=== PATIENT | female | born 1970 | race Caucasian/White ===

== ENCOUNTER → 2019-10-14 | Outpatient (CLI) | payer OTHER ==
--- NOTE | 2019-10-14 09:25 | PCVCIMAG ---
APPROVED REPORT Study performed: 10/14/2019 08:43:45 EXAM: Comprehensive 2D, Doppler, and color-flow Echocardiogram Patient Location: Echo lab Status: routine BSA: 2.06 HR: 58 bpmBP: 130/100 mmHg Rhythm: NSR Other Information Study Quality: Good Risk Factors: Cardiac Risk Factors: HTN Indications Rheumatoid arthritis 2D Dimensions IVSd: 10.96 (7-11mm)LVOT Diam: 18.18 (18-24mm) LVDd: 39.78 mm PWd: 8.41 (7-11mm)Ascending Ao: 32.05 (22-36mm) LVDs: 30.03 (25-40mm) Left Atrium: 44.37 (27-40mm) Aortic Root: 27.17 mm LV Single Plane 4CH: 54.86 % LV Single Plane 2CH: 61.59 % Biplane EF: 59.6 % Volumes Left Atrial Volume (Systole) Single Plane 4CH: 40.05 mLSingle Plane 2CH: 58.26 mL LA ESV Index: 24.00 mL/m2 Aortic Valve AoV Peak Jass.: 1.53 m/s AO Peak Gr.: 9.31 mmHgLVOT Max P.78 mmHg LVOT Max V: 0.97 m/s ALESSANDRO Vmax: 1.65 cm2 Mitral Valve E/A Ratio: 1.0 MV Decel. Time: 164.80 ms MV E Max Jass.: 0.91 m/s MV A Jass.: 0.91 m/s IVRT: 124.57 ms TDI E/Lateral E': 10.11E/Medial E': 10.11 Medial E' Jass.: 0.09 m/s Lateral E' Jass.: 0.09 m/s Pulmonary Valve PV Peak Gr.: 1.45 mmHg Pulmonary Vein P Vein S: 0.60 m/sP Vein A: 0.41 m/s P Vein D: 0.39 m/sP Vein A Dur.: 107.3 msec P Vein S/D Ratio: 1.54 Tricuspid Valve TR Peak Jass.: 2.20 m/s TR Peak Gr.: 19.32 mmHg Left Ventricle The left ventricle is normal size. There is normal LV segmental wall motion. There is normal left ventricular wall thickness. Left ventricular systolic function is normal. The left ventricular ejection fraction is within the normal range. LVEF is 60-65%. Right Ventricle The right ventricle is normal size. The right ventricular systolic function is normal. Atria The left atrium size is normal. The right atrium size is normal. Aortic Valve The aortic valve is normal in structure. No aortic regurgitation is present. There is no aortic valvular stenosis. Mitral Valve Mitral valve leaflets are thickened. Trace mitral regurgitation. No evidence of mitral valve stenosis. Tricuspid Valve The tricuspid valve is normal in structure. Trace tricuspid regurgitation. Pulmonary artery pressure is 27mmHg. Pulmonic Valve The pulmonary valve is normal in structure. Trace pulmonic regurgitation. Great Vessels The aortic root is normal in size. IVC is normal in size and collapses >50% with inspiration. Pericardium There is no pericardial effusion. <Conclusion> The left ventricle is normal size. LVEF is 60-65%. The aortic valve is normal in structure. Mitral valve leaflets are thickened. Trace mitral regurgitation. The tricuspid valve is normal in structure. Trace tricuspid regurgitation. Pulmonary artery pressure is 27mmHg. The pulmonary valve is normal in structure. Trace pulmonic regurgitation. There is no pericardial effusion.
--- NOTE | 2019-10-14 10:39 | PCVCIMAG ---
EXAM: BILATERAL RENAL ULTRASOUND AND BILATERAL RENAL DUPLEX INDICATION: Hypertension FINDINGS: Right kidney: Length measures 11.1 cm. No hydronephrosis or extensive renal scarring. Right renal duplex: Adequate technical quality. No sonographic evidence of renal artery stenosis. The aortic to renal artery ratio is 1.8. The renal vein is patent. Left kidney: Length measures 11.7 cm. No hydronephrosis or extensive renal scarring. Left renal duplex: Adequate technical quality. 50% proximal renal artery stenosis. The aortic to renal artery ratio is 2.5. The renal vein is patent. Bladder: No obvious abnormalities. IMPRESSION: 50% stenosis proximal left renal artery. If this is of clinical concern further evaluation with CTA of the renal arteries could be done. No significant right renal artery stenosis. No hydronephrosis bilaterally. LOC:[id number]
== END | disposition home or self-care (01) ==
LOC: PCVCIMAG 09:20
PROVIDERS: ATTEND Internal Medicine
DX: I10 Essential (primary) hypertension (principal); E78.5 Hyperlipidemia, unspecified; J45.909 Unspecified asthma, uncomplicated; F32.9 Major depressive disorder, single episode, unspecified; F43.10 Post-traumatic stress disorder, unspecified; M06.9 Rheumatoid arthritis, unspecified; Z88.1 Allergy status to other antibiotic agents; Z88.0 Allergy status to penicillin; Z79.84 Long term (current) use of oral hypoglycemic drugs; Z90.49 Acquired absence of other specified parts of digestive tract; Z83.3 Family history of diabetes mellitus; Z80.9 Family history of malignant neoplasm, unspecified; Z82.49 Family history of ischemic heart disease and other diseases of the circulatory system; Z81.8 Family history of other mental and behavioral disorders; Z79.899 Other long term (current) drug therapy
CPT/HCPCS: 76770; 93306; 93975